=== PATIENT | female | born 1970 | race Caucasian/White ===

== ENCOUNTER → 2017-03-30 | Outpatient (CLI) | payer BC ==
[~2017-03-30] MED LIST: DOXYCYCLINE HY100 MG PO; PREDNISONE1 MG PO; ULTRAM 50MG TAB50 MG PO; WELLBUTRIN XL300 M1 PO; ZOFRAN ODT4 MG PO
== END ==
LOC: MC.RAD 13:00
DX: Z12.31 Encounter for screening mammogram for malignant neoplasm of breast (principal); N63.20 Unspecified lump in the left breast, unspecified quadrant

== ENCOUNTER → 2018-04-12 | Outpatient (CLI) | payer BC | LOC: MC.RAD 16:43 | DX: Z12.31 Encounter for screening mammogram for malignant neoplasm of breast (principal); N63.14 Unspecified lump in the right breast, lower inner quadrant ==

== ENCOUNTER → 2018-04-18 | Outpatient (CLI) | payer BC | LOC: MC.RAD 13:22 | DX: N63.14 Unspecified lump in the right breast, lower inner quadrant (principal) | CPT/HCPCS: G0279 ==

== ENCOUNTER → 2018-10-23 | Outpatient (CLI) | payer BC | LOC: MC.RAD 13:13 | DX: N63.12 Unspecified lump in the right breast, upper inner quadrant (principal) | CPT/HCPCS: G0279 ==

== ENCOUNTER → 2019-04-16 | Outpatient (CLI) | payer BC | LOC: MC.RAD 14:07 | DX: Z12.31 Encounter for screening mammogram for malignant neoplasm of breast (principal); N63.10 Unspecified lump in the right breast, unspecified quadrant ==

== ENCOUNTER → 2019-04-24 | Outpatient (CLI) | payer BC | LOC: MC.RAD 07:27 | DX: N60.01 Solitary cyst of right breast (principal) ==

== ENCOUNTER → 2019-04-30 | Outpatient (CLI) | payer BC | LOC: MC.RAD 09:55 | DX: N60.01 Solitary cyst of right breast (principal); Z98.82 Breast implant status ==

== ENCOUNTER → 2020-04-21 | Outpatient (CLI) | payer BC | LOC: MC.RAD 13:23 | DX: Z12.31 Encounter for screening mammogram for malignant neoplasm of breast (principal); N60.01 Solitary cyst of right breast; Z98.82 Breast implant status ==

== ENCOUNTER → 2021-05-27 | Outpatient (CLI) | payer BC | LOC: MC.RAD 05-26 08:45 | DX: Z12.31 Encounter for screening mammogram for malignant neoplasm of breast (principal); N63.11 Unspecified lump in the right breast, upper outer quadrant ==

== ENCOUNTER → 2021-06-03 | Outpatient (CLI) | payer BC | LOC: MC.RAD 07:42 | DX: N60.01 Solitary cyst of right breast (principal); N60.02 Solitary cyst of left breast ==

== ENCOUNTER → 2023-06-27 | Outpatient (CLI) | payer BC ==
[2004-07-01 05:14] VITALS: BP 126/73; PULSE 103; TEMP 97.1
== END ==
LOC: MC.RAD 14:39
DX: Z12.31 Encounter for screening mammogram for malignant neoplasm of breast (principal)

== ENCOUNTER 2023-08-25 01:41 | Emergency (ER) | payer BC ==
[~2023-08-25] VITALS: Ht 160 cm; Wt 72.7 kg
[2023-08-25 02:10] LABS: BASO # 0.1 K/mm3 (0.0-0.2); BASO % 0.4 % (0.0-2.0); EOS # 0.1 K/mm3 (0.0-0.7); EOS % 0.6 % (0.0-4.0); GRAN % 61.5 % (42.2-75.2); HEMATOCRIT 37.6 % (37.0-47.0); HEMOGLOBIN 12.8 g/dl (12.5-16.0); LYMPH # 3.4 K/mm3 (1.2-3.4); LYMPH % 30.1 % (20.0-51.0); MEAN CELL VOLUME 90 fl (80.0-100.0); MEAN CORPUSCULAR HEMOGLOBIN 31 pg (27-31); MEAN CORPUSCULAR HGB CONC 34 g/dl (33.0-37.0); MEAN PLATELET VOLUME 9.7 fl (7.4-10.4); MONO # 0.8 K/mm3 (0.1-0.6); MONO % 6.9 % (1.7-9.3); PLATELET COUNT 352 K/mm3 (130-400); RED BLOOD COUNT 4.19 M/mm3 (4.10-5.30); REDCELL DISTRIBUTION WIDTH-CV 12.3 % (11.5-14.5)
[2023-08-25 02:21] LABS: ALANINE AMINOTRANSFERASE 24 U/L (0-55); ALBUMIN 3.9 gm/dL (3.5-5.0); ALKALINE PHOSPHATASE 86 U/L (40-150); ANION GAP 8 mmol/L (7-16); AST,SGOT 28 U/L (5-34); BILIRUBIN,TOTAL 0.4 mg/dL (0.2-1.2); BLOOD UREA NITROGEN 12 mg/dL (10-20); CALCIUM 9.7 mg/dL (8.4-10.2); CARBON DIOXIDE 23 mmol/L (22-29); CHLORIDE 105 mmol/L (98-107); CREATINE KINASE 99 U/L (29-168); CREATININE, serum 0.91 mg/dL (0.57-1.11); GLUCOSE 99 mg/dL (70-99); POTASSIUM 4.1 mmol/L (3.5-4.5); SODIUM 136 mmol/L (136-145); TOTAL PROTEIN 7.1 gm/dL (6.2-8.1)
[2023-08-25 02:44] LABS: TROPONIN-I < 0.010 ng/mL (0.00-0.033)
[2023-08-25] MEDS ORDERED: NS 1,000 ML IV ONE (02:45)
[2023-08-25 04:43] VITALS: BP 116/69; PULSE 78
== END 2023-08-25 04:50 | disposition home or self-care (01) ==
LOC: COL.ER 01:41
PROVIDERS: Emergency Medicine
DX: R07.2 Precordial pain (principal); R00.0 Tachycardia, unspecified; Z79.899 Other long term (current) drug therapy
CPT/HCPCS: J7030